=== PATIENT | female | born 1975 | race Caucasian/White ===

== ENCOUNTER 2017-09-30 14:52 | Day surgery (SDC) | payer OTHER ==
[2017-09-29 12:01] VITALS: BMI 31.8
[2017-09-30] MEDS ORDERED: Propofol 10 mg/ml Inj (20 ML) ONE (16:08)
[2017-09-30] MEDS ORDERED: Midazolam 2 MG/2 ML VIAL ONE (16:08)
[2017-09-30] MEDS ORDERED: Silver Nitrate Topical - Stick ONE (16:52)
[2017-09-30] MEDS ORDERED: Oxycodone/Acetaminophen 5/325 mg Tab PO PRN (17:07)
[2017-09-30 18:10] VITALS: BP 107/68; PULSE 72; RESP 18; TEMP 98; O2SAT 100
--- NOTE | 2017-10-05 11:39 | OP ---
PROCEDURE DATE: 09/30/2017 PREOPERATIVE DIAGNOSIS: Missed . POSTOPERATIVE DIAGNOSIS: Missed . PROCEDURE: Suction, dilatation and curettage. SURGEON: Mykel Price MD TYPE OF ANESTHESIA: General LMA. ANESTHESIOLOGISTS: Jak Reeves MD and Dr. Serna. COMPLICATIONS: None. ESTIMATED BLOOD LOSS: 100 mL. SPECIMENS: Products of conception. PROCEDURE IN DETAIL: After informed consent was obtained, the patient was taken to the operating room and placed in dorsal supine position. General anesthesia was induced and an LMA was placed by the Anesthesia Team. She was thereafter placed in dorsal lithotomy position. She was then prepped and draped in the usual sterile manner. The urinary bladder was straight catheterized. A sterile speculum was thereafter placed in the vagina and the anterior lip of the cervix was grasped with a single-toothed tenaculum. The cervix at this point was dilated till a size 10 mm suction tip could be introduced into the patient's uterine cavity. The suction tip was introduced and hooked up to the suction machine. The products of conception were thereafter suctioned out. Two passes were done and frothy blood was noted in the suction tubing. Sharp curettage was thereafter performed until a gritty sensation was felt. The tenaculum was thereafter removed from the anterior lip of the cervix. IM Methergine was given by the Anesthesia Team. The tenaculum site was noted to be hemostatic. The uterus was noted to be firm, bleeding was noted to be minimal. The speculum was thereafter removed. The patient was taken out of the lithotomy position. The patient was thereafter extubated and taken to the recovery room in stable condition. Mykel Price MD
== END 2017-09-30 18:33 | disposition home or self-care (01) ==
LOC: C.SDS 14:52
PROVIDERS: ATTEND Student in an Organized Health Care Education/Training Program
DX: O02.1 Missed abortion (principal)
CPT/HCPCS: 59820; 88305; J1885; J2210; J2250; J2405; J2704; J3010